=== PATIENT | female | born 1955 | race Caucasian/White ===

== ENCOUNTER 2016-04-14 11:20 | Day surgery (SDC) | payer BC ==
[2016-04-09 14:08] VITALS: BMI 31.9
[~2016-04-14 11:20] MED LIST: ALBUTEROL NEB (CONC) 2.5 MG/0.5 ML INHALATION ONE; ATROPINE SULFATE 0.4 MG/ML 1 ML VIAL IM ONE; LACTATED RINGERS 1,000 ML IV ONE; LIDOCAINE 2% (PF) 20 MG/ML 10ML INHALATION ONE; Pre Op ABX Message 1 EACH MISC MISCELLANE ONE
[2016-04-14 12:04] VITALS: TEMP 98
[2016-04-14] MEDS: LACTATED RINGERS 1,000 ML IV SCH ×2 (12:12→12:27)
[2016-04-14 12:19] LABS: Glucose,Whole Blood 65 mg/dL (75-99)
[2016-04-14] MEDS ORDERED: LIDOCAINE 1% INJ 10MG/ML (20 ML MDV) ONE (12:30)
[2016-04-14] MEDS ORDERED: PROPOFOL 10 MG/ML 20 ML VIAL IV ONE (12:30)
[2016-04-14] MEDS ORDERED: LIDOCAINE 2% INJ 20 MG/ML INTRATRACH ONE ×2 (12:34→12:37)
[2016-04-14 13:28] VITALS: BP 139/79; PULSE 86; RESP 18
[2016-04-14 15:55] LABS: RBC, Body Fluid 7500 /uL
--- NOTE | 2016-04-14 21:54 | PCN ---
DATE OF PROCEDURE: PROCEDURE: Bronchoscopy, airway examination, therapeutic lavage, bronchoalveolar lavage, right middle lobe. PREOPERATIVE DIAGNOSIS: SLASHER TENDER provided IV conscious sedation. There was informed consent. There was universal timeout. The patient's procedure was done by Dr. Ruth and Dr. Gómez. After the patient was adequately sedated and being fully monitored, the bronchoscope was inserted through the right nostril. It passed through the right nasopharynx into the oropharynx. The hypopharynx appeared normal, except for the yeast. There was izzy noted everywhere in the hypopharynx. We will have to put her on some medication for that. The anterior commissure, true cords, false cords, arytenoids, piriform sinuses, right and left valleculae and epiglottis otherwise appeared normal. After topicalization, the bronchoscope was pushed through the glottic opening into the trachea. Trachea appeared normal. Tracheal imani was sharp. There were secretions noted that were being coughed up into the proximal right and left mainstem and also into the trachea. After topicalization, the right upper lobe and its 3 segments, the right middle lobe and its 2 segments, the right lower lobe and its 5 segments, the left upper lobe proper and its 2 segments, the lingula and its 2 segments, and the left lower lobe and its 4 segments were all found to be normal save for diffuse bronchitis, erythema, hyperemia and mucosal friability. There were no dominant lesions. There were thick secretions noted throughout. They were suctioned with some difficulty. The bronchoscope was then wedged into the right middle lobe. BAL took place. There was no immediate complication. The patient will be recovered.
== END 2016-04-14 13:42 | disposition home or self-care (01) ==
LOC: ORWHC2ENDO 11:20
PROVIDERS: ATTEND Internal Medicine Critical Care Medicine
DX: J45.901 Unspecified asthma with (acute) exacerbation (principal); Z79.2 Long term (current) use of antibiotics; Z79.51 Long term (current) use of inhaled steroids; Z79.899 Other long term (current) drug therapy; Z88.0 Allergy status to penicillin; Z88.8 Allergy status to other drugs, medicaments and biological substances
CPT/HCPCS: 94640; 87798 ×4; 87496; 87498; 87529 ×2; 88108; 88305; 89050; 87252; 87502 ×2; 87070; 87205; 87116; 87102; 87077; 87186; 87206; 31624; J2001 ×3; J0461; J2704; 99153

== ENCOUNTER → 2016-09-14 | Outpatient (CLI) | payer BC ==
--- NOTE | 2016-09-14 15:02 | BD ---
EXAMINATION TYPE: MG DEXA axial skeleton. DATE OF EXAM: 09/14/2016 CLINICAL HISTORY: Postmenopausal female, osteoporosis per order. Height: 55.25 Weight: 180 Comparison: Prior DEXA bone scan July 04, 2012. FRAX RISK QUESTIONS: Alcohol (3 or more units per day): no Family History (Parent hip fracture): no Glucocorticoids (More than 3mos): yes (Ex: prednisone, prednisolone, methylprednisolone, dexamethasone, and hydrocortisone). History of Fracture in Adulthood: yes, ankle & right hip Secondary Osteoporosis: 1. Type 1 Diabetes: no 2. Hyperthyroidism: no 3. Menopause before 45: no, 48 4. Malnutrition: no 5. Chronic liver disease: no Rheumatoid Arthritis: no Current Tobacco Use: no RISK FACTORS HISTORY OF: Hip Fracture (Right): yes When: this may Surgery to Hip(right): yes When: 2016 Other Fractures since Age 51: yes When: 2017 Family History of Osteoporosis: no Drink Alcohol: occasionally Active: yes Diet low in dairy products/other sources of calcium: no Postmenopausal woman: yes Take estrogen and/or progesterone medications: no Lost more than 2 inches in height since high school: no Frequent falls: no Poor Health: no Hyperparathyroidism: no Adrenal Insufficiency: no MEDICATIONS: Prednisone or other steroids: yes How Long: since age 48 Thyroid Medications: no Osteoporosis Medications: no Additional Medications: Vitamin D, calcium EXAM MEASUREMENTS: Bone mineral densitometry was performed using the Getable System. Bone mineral density as measured about the Lumbar spine is: ----- L1-L4(G/cm2): 0.847 T Score Values are as follows: ----- L2: -2.8 ----- L3: -3.0 ----- L4: -3.0 ----- L1-L4: -2.8 Bone mineral density has: Decreased -8.2% since study of: 07/04/2012 Bone mineral density about the L hip (g/cm2): 0.773 T Score values are as follows: -----L Neck: -1.9 -----L Total: -1.9 Bone mineral density has: Decreased -2.3% since study of: 07/04/2012 IMPRESSION: Osteoporosis (T Score less than -2.5) as noted by T Score values at the low back is now present. Bone density is decreased or diminished from prior. There is increased fracture risk and therapy is usually indicated based on age. Re-Screen 1-2 years. NOTE: T-SCORE=SD OF THE YOUNG ADULT MEAN.
== END | disposition home or self-care (01) ==
LOC: RADBDWWP 12:44
PROVIDERS: ATTEND Internal Medicine Critical Care Medicine
DX: M81.0 Age-related osteoporosis without current pathological fracture (principal)
CPT/HCPCS: 77080

== ENCOUNTER → 2020-08-23 | Outpatient (CLI) | payer BC ==
[2020-08-23 19:26] LABS: African American GFR (CKD) 78.3 (60.0-200.0); Albumin 4.3 g/dL (3.80-4.90); Albumin/Globulin Ratio 1.79 (1.60-3.17); Anion Gap 7.2 mmol/L (4.00-12.00); BUN/Creat Ratio 21.11 Ratio (12.00-20.00); Carbon Dioxide 28.8 mmol/L (21.6-31.8); Chol/HDL Ratio 2.93; Globulin 2.4 g/dL (1.6-3.3); LDL Cholesterol,Calculated 97.2 mg/dL (0.0-131.0); Non-African American GFR(CKD) 67.6 (60.0-200.0); Potassium 4.5 mmol/L (3.5-5.5); Total Bilirubin 0.6 mg/dL (0.2-1.2); Total Protein 6.7 g/dL (6.2-8.2); VLDL Calculation 14.8 mg/dL (5.00-40.00)
[2020-08-23 19:35] LABS: T4, Free (Free Thyroxine) 1.1 ng/dL (0.80-1.80)
[2020-08-23 20:50] LABS: Basophils # (A) 0.05 X 10*3/uL (0.00-0.10); Basophils % (A) 0.8 %; Eosinophils # (A) 0.08 X 10*3/uL (0.04-0.35); Eosinophils % (A) 1.3 %; HCT 41.7 % (37.2-46.3); HGB 13.4 g/dL (12.0-15.0); Lymphocytes # (A) 1.85 X 10*3/uL (0.90-5.00); Lymphocytes % (A) 30.4 %; MCH 31.5 pg (27.0-32.0); MCHC 32.1 g/dL (32.0-37.0); MCV 97.9 fL (80.0-97.0); Mean Platelet Volume 11.5 fL (9.5-12.2); Monocytes # (A) 0.49 X 10*3/uL (0.20-1.00); Neutrophils # (A) 3.61 X 10*3/uL (1.80-7.70); Neutrophils % (A) 59.3 %; Platelet Count 177 X 10*3/uL (140-440); RBC 4.26 X 10*6/uL (4.10-5.20); RDW 13.1 % (11.5-14.5); WBC 6.09 X 10*3/uL (4.50-10.00)
[2020-08-23 23:04] LABS: Hemoglobin A1C 5.3 % (4.0-6.0)
== END | disposition home or self-care (01) ==
LOC: LABWHC1 11:36
PROVIDERS: ATTEND Internal Medicine Critical Care Medicine
DX: Z00.00 Encounter for general adult medical examination without abnormal findings (principal); J45.909 Unspecified asthma, uncomplicated
CPT/HCPCS: 36415; 80053; 80061; 82306; 83036; 84439; 84481; 85025

== ENCOUNTER 2020-11-06 15:47 | Emergency (ER) | payer BC ==
[2020-11-06 16:01] VITALS: TEMP 98
[2020-11-06 17:06] LABS: Basophils # (A) 0.1 k/uL (0-0.2); Basophils % (A) 1 %; Eosinophils # (A) 0.1 k/uL (0-0.7); Eosinophils % (A) 1 %; HCT 45.1 % (34.0-46.0); Lymphocytes # (A) 1.9 k/uL (1.0-4.8); Lymphocytes % (A) 23 %; MCH 31.9 pg (25.0-35.0); MCHC 33.3 g/dL (31.0-37.0); MCV 95.8 fL (80.0-100.0); Mean Platelet Volume 7.8; Monocytes # (A) 0.3 k/uL (0-1.0); Monocytes % (A) 3 %; Neutrophils # (A) 5.6 k/uL (1.3-7.7); Neutrophils % (A) 70 %; Platelet Count 207 k/uL (150-450); RBC 4.71 m/uL (3.80-5.40); RDW 13.1 % (11.5-15.5)
--- NOTE | 2020-11-06 17:06 | ED ---
General Adult HPI - General Chief complaint: Shortness of Breath Stated complaint: Coughing up blood Source: patient, family, RN notes reviewed, old records reviewed Mode of arrival: ambulatory Limitations: no limitations - History of Present Illness Initial comments: 65-year-old well-appearing well-nourished female, alert and oriented 4, presents to the emergency room with complaints of one day of cough with chest pain. Patient states that she does have a history of asthma and today she had a productive cough with a quarter size blood clot that came out. Patient denies any injuries Patient denies any other bleeding. No nausea vomiting diarrhea or fevers. States that she's been on Zithromax for 3 Wednesday for a couple of years to help control her asthma. Patient was told that it is an anti-inflammatory. -: days(s) (1) Location: chest Radiation: non-radiation Severity scale (1-10): 0 Consistency: now resolved Improves with: none Worsens with: other (Cough) Associated Symptoms: chest pain, cough, other (Hemoptysis) - Related Data Home Medications Medication Instructions Recorded Confirmed Azithromycin [Zithromax] 250 mg PO MOWEFR 04/09/16 11/06/20 Montelukast Sodium [Singulair] 10 mg PO HS 04/09/16 11/06/20 Calcium 2000mg 1 tab PO DAILY 11/06/20 11/06/20 Cholecalciferol [Vitamin D3 (25 25 mcg PO DAILY 11/06/20 11/06/20 Mcg = 1000 Iu)] Fluticasone Propion/Salmeterol 1 puff INHALATION RT-BID 11/06/20 11/06/20 [Wixela 500-50 Inhub] Loratadine [Claritin] 10 mg PO DAILY 11/06/20 11/06/20 Allergies Allergy/AdvReac Type Severity Reaction Status Date / Time aspirin Allergy Dyspnea Verified 11/06/20 17:18 Penicillins Allergy Rash/Hives Verified 11/06/20 17:18 Review of Systems ROS Statement: Those systems with pertinent positive or pertinent negative responses have been documented in the HPI. ROS Other: All systems not noted in ROS Statement are negative. Past Medical History Past Medical History: Asthma, Deep Vein Thrombosis (DVT) Additional Past Medical History / Comment(s): DVT 1995. VARICOSE VEINS. History of Any Multi-Drug Resistant Organisms: None Reported Additional Past Surgical History / Comment(s): VEIN STRIPPING. BRONCHOSCOPY. KIDNEY STONES. D&C. EXC BENIGN TUMOR LT OVARY. Past Anesthesia/Blood Transfusion Reactions: No Reported Reaction Past Psychological History: No Psychological Hx Reported Smoking Status: Never smoker Past Alcohol Use History: Occasional Past Drug Use History: None Reported - Past Family History Father Family Medical History: Cancer Mother Family Medical History: Cancer General Exam Limitations: no limitations General appearance: alert, in no apparent distress Head exam: Present: atraumatic, normocephalic, normal inspection Eye exam: Present: normal appearance, PERRL, EOMI. Absent: scleral icterus, conjunctival injection, periorbital swelling Pupils: Present: normal accommodation ENT exam: Present: normal exam, normal oropharynx, mucous membranes moist Neck exam: Present: normal inspection, full ROM. Absent: tenderness, meningismus, lymphadenopathy, thyromegaly Respiratory exam: Present: normal lung sounds bilaterally, rhonchi. Absent: respiratory distress, wheezes, rales, stridor, chest wall tenderness, decreased breath sounds Cardiovascular Exam: Present: regular rate, normal rhythm, normal heart sounds. Absent: systolic murmur, diastolic murmur, rubs, gallop, clicks GI/Abdominal exam: Present: soft, normal bowel sounds. Absent: distended, tenderness, guarding, rebound, rigid Extremities exam: Present: normal inspection, full ROM, normal capillary refill. Absent: tenderness, pedal edema, joint swelling, calf tenderness Back exam: Present: normal inspection, full ROM. Absent: tenderness, CVA tenderness (R), CVA tenderness (L), muscle spasm, paraspinal tenderness, vertebral tenderness, rash noted Neurological exam: Present: alert, oriented X3, CN II-XII intact Psychiatric exam: Present: normal affect, normal mood Skin exam: Present: warm, dry, intact, normal color. Absent: rash, cyanosis, diaphoretic, erythema, petechiae, pallor, mottled Course Vital Signs 11/06/20 15:56 Temperature 98.0 F Pulse Rate 86 Respiratory 17 Rate Blood Pressure 191/93 O2 Sat by Pulse 97 Oximetry EKG Findings - EKG Results: EKG: sinus rhythm (Ventricular rate of 80, [place] interval 0.174, QRS of 0.132, QTC of 0.479 occasional PVCs) Medical Decision Making - Medical Decision Making CBC count is 8.0, hemoglobin and hematocrit is 15.5 respectively, platelet count is 207, d-dimer is 0.51. Electrolytes are unremarkable. Troponin is negative at 0.012, EKG shows no ST elevation. There is a left bundle-branch block, no old EKG to compare. Chest x-ray shows no acute cardiopulmonary disease, normal heart. Patient was put on Zithromax 250 mg every Wednesday and Wednesday by her palm and back forger Dr. Weeks. She'll be directed to continue her medication. Return to emergency room with worsening symptoms, shortness of breath or chest pain. Patient is agreeable to this plan of care. Case discussed with Dr. Currie - Lab Data Result diagrams: 11/06/20 16:55 11/06/20 16:55 Lab Results 11/06/20 11/06/20 11/06/20 Range/Units 16:55 16:55 16:55 WBC 8.0 (3.8-10.6) k/uL RBC 4.71 (3.80-5.40) m/uL Hgb 15.0 (11.4-16.0) gm/dL Hct 45.1 (34.0-46.0) % MCV 95.8 (80.0-100.0) fL MCH 31.9 (25.0-35.0) pg MCHC 33.3 (31.0-37.0) g/dL RDW 13.1 (11.5-15.5) % Plt Count 207 (150-450) k/uL MPV 7.8 Neutrophils % 70 % Lymphocytes % 23 % Monocytes % 3 % Eosinophils % 1 % Basophils % 1 % Neutrophils # 5.6 (1.3-7.7) k/uL Lymphocytes # 1.9 (1.0-4.8) k/uL Monocytes # 0.3 (0-1.0) k/uL Eosinophils # 0.1 (0-0.7) k/uL Basophils # 0.1 (0-0.2) k/uL D-Dimer (<0.60) mg/L FEU Sodium 140 (137-145) mmol/L Potassium 4.1 (3.5-5.1) mmol/L Chloride 103 (98-107) mmol/L Carbon Dioxide 26 (22-30) mmol/L Anion Gap 11 mmol/L BUN 13 (7-17) mg/dL Creatinine 0.80 (0.52-1.04) mg/dL Est GFR (CKD-EPI)AfAm >90 (>60 ml/min/1.73 sqM) Est GFR (CKD-EPI)NonAf 78 (>60 ml/min/1.73 sqM) Glucose 93 (74-99) mg/dL Plasma Lactic Acid Camron 0.8 (0.7-2.0) mmol/L Calcium 10.3 H (8.4-10.2) mg/dL Magnesium 2.1 (1.6-2.3) mg/dL Total Bilirubin 0.6 (0.2-1.3) mg/dL AST 33 (14-36) U/L ALT 25 (4-34) U/L Alkaline Phosphatase 90 (38-126) U/L Troponin I (0.000-0.034) ng/mL Total Protein 8.1 (6.3-8.2) g/dL Albumin 5.0 (3.5-5.0) g/dL 11/06/20 11/06/20 Range/Units 16:55 16:55 WBC (3.8-10.6) k/uL RBC (3.80-5.40) m/uL Hgb (11.4-16.0) gm/dL Hct (34.0-46.0) % MCV (80.0-100.0) fL MCH (25.0-35.0) pg MCHC (31.0-37.0) g/dL RDW (11.5-15.5) % Plt Count (150-450) k/uL MPV Neutrophils % % Lymphocytes % % Monocytes % % Eosinophils % % Basophils % % Neutrophils # (1.3-7.7) k/uL Lymphocytes # (1.0-4.8) k/uL Monocytes # (0-1.0) k/uL Eosinophils # (0-0.7) k/uL Basophils # (0-0.2) k/uL D-Dimer 0.51 (<0.60) mg/L FEU Sodium (137-145) mmol/L Potassium (3.5-5.1) mmol/L Chloride (98-107) mmol/L Carbon Dioxide (22-30) mmol/L Anion Gap mmol/L BUN (7-17) mg/dL Creatinine (0.52-1.04) mg/dL Est GFR (CKD-EPI)AfAm (>60 ml/min/1.73 sqM) Est GFR (CKD-EPI)NonAf (>60 ml/min/1.73 sqM) Glucose (74-99) mg/dL Plasma Lactic Acid Camron (0.7-2.0) mmol/L Calcium (8.4-10.2) mg/dL Magnesium (1.6-2.3) mg/dL Total Bilirubin (0.2-1.3) mg/dL AST (14-36) U/L ALT (4-34) U/L Alkaline Phosphatase (38-126) U/L Troponin I <0.012 (0.000-0.034) ng/mL Total Protein (6.3-8.2) g/dL Albumin (3.5-5.0) g/dL Disposition Clinical Impression: Bronchitis Disposition: HOME SELF-CARE Condition: Good Instructions (If sedation given, give patient instructions): Acute Bronchitis (ED) Additional Instructions: Follow-up with the primary care doctor this week. Return to the emergency room with any worsening symptoms including chest pain, fever or difficulty in breathing. Is patient prescribed a controlled substance at d/c from ED?: No Referrals: Gerardo Ruth DO [Primary Care Provider] - 1-2 days Time of Disposition: 18:13
[2020-11-06 17:24] LABS: ALT 25 U/L (4-34); AST 33 U/L (14-36); African American GFR (CKD) >90 (>60 ml/min/1.73 sqM); Alkaline Phosphatase 90 U/L (38-126); Anion Gap 11 mmol/L; Blood Urea Nitrogen 13 mg/dL (7-17); Calcium 10.3 mg/dL (8.4-10.2); Carbon Dioxide 26 mmol/L (22-30); Chloride 103 mmol/L (98-107); Glucose 93 mg/dL (74-99); Magnesium 2.1 mg/dL (1.6-2.3); Non-African American GFR(CKD) 78 (>60 ml/min/1.73 sqM); Potassium 4.1 mmol/L (3.5-5.1); Sodium 140 mmol/L (137-145); Total Bilirubin 0.6 mg/dL (0.2-1.3); Total Protein 8.1 g/dL (6.3-8.2)
--- NOTE | 2020-11-06 17:45 | XR ---
EXAMINATION TYPE: XR chest 2V DATE OF EXAM: 11/06/2020 COMPARISON: 01/31/2019 HISTORY: Chest tightness TECHNIQUE: 2 views FINDINGS: There is no heart failure nor confluent pneumonic infiltrate. Costophrenic angles are clear . There is some spurring in the thoracic spine. Heart size is normal. The bony thorax is intact. IMPRESSION: No active cardiopulmonary disease. Normal heart. There is significant clearing of the min imal pulmonary interstitial infiltrates in the lower lung kendrick compared to old exam.
[2020-11-06 18:41] VITALS: BP 160/102; PULSE 81; RESP 18
== END 2020-11-06 18:57 | disposition home or self-care (01) ==
LOC: EC 15:47
DX: J40 Bronchitis, not specified as acute or chronic (principal); Z86.718 Personal history of other venous thrombosis and embolism; Z79.51 Long term (current) use of inhaled steroids; Z88.0 Allergy status to penicillin; Z88.6 Allergy status to analgesic agent
CPT/HCPCS: 36415; 71046; 80053; 83605; 83735; 84484; 85025; 85379; 93005; 99285

== ENCOUNTER → 2021-07-14 | Outpatient (CLI) | payer BC ==
--- NOTE | 2021-07-14 16:16 | BD ---
EXAMINATION TYPE: Axial Bone Density DATE OF EXAM: 07/14/2021 COMPARISON: 09/14/2016 CLINICAL HISTORY: 66 years year old Female. ICD-10 CODE: M85.88 other disorder of bone density Height: 65 IN Weight: 210 LBS FRAX RISK QUESTIONS: History of Fracture in Adulthood: RT HIP FX AGE 62 RISK FACTORS HISTORY OF: Hip Fracture (Right): AGE 62 Surgery to Hip(right): AGE 62 Active: YES Postmenopausal woman: AGE 48 MEDICATIONS: Osteoporosis Medications: NOT NOW Which medication: Fosamax How Lon YEAR Additional Medications: CALCIUM, VIT D, ADVAIR, AZITHROMYCIN, VIT C EXAM MEASUREMENTS: Bone mineral densitometry was performed using the First Wave System. Bone mineral density as measured about the Lumbar spine is: ----- L1-L4(G/cm2): 0.907 T Score Values are as follows: ----- L1: -1.6 ----- L2: -3.0 ----- L3: -2.7 ----- L4: -2.1 ----- L1-L4: -2.3 Bone mineral density has: Increased 6.8% since study of: 09/14/2016 Bone mineral density about the L hip (g/cm2): 0.789 T Score values are as follows: -----L Neck: -1.8 -----L Total: -1.6 Bone mineral density has: Increased -1.6% since study of: 09/14/2016 FRAX%s: The graph provided illustrates a 15.3 chance for a major osteoporotic fx and a 2.0 chance for the hips probability for fx in 10 years time. IMPRESSION: Osteoporosis (T Score less than -2.5). There is increased fracture risk and therapy is usually indicated based on age. Re-Screen 1-2 years. NOTE: T-SCORE=SD OF THE YOUNG ADULT MEAN.
== END | disposition home or self-care (01) ==
LOC: RADBDWWP 13:24
PROVIDERS: ATTEND Internal Medicine Critical Care Medicine
DX: M81.0 Age-related osteoporosis without current pathological fracture (principal); M85.89 Other specified disorders of bone density and structure, multiple sites; Z78.0 Asymptomatic menopausal state
CPT/HCPCS: 77080

== ENCOUNTER 2021-09-07 14:10 | Emergency (ER) | payer BC ==
[2021-09-07 15:05] VITALS: BP 166/103; PULSE 81; RESP 18; TEMP 97.7
[2021-09-07] MEDS ORDERED: HYDROmorphone 1 MG/ML 1 ML SYRINGE IM STA (15:35)
--- NOTE | 2021-09-07 15:57 | ED ---
Back Pain HPI - General Chief Complaint: Back Pain/Injury Stated Complaint: Fall/Back/head injury Time Seen by Provider: 09/07/21 15:17 Source: patient, family, RN notes reviewed Limitations: no limitations - History of Present Illness Initial Comments: This a 66-year-old female presents emergency Department chief complaint of a fall. Patient states she was in the garage missed a step falling backwards striking her back on a tool box. Patient complains of upper back, rib pain. She states she had she bumped her head but has no went of headache, loss consciousness, neck pain no low back pain no difficulty and bleeding. Family with her states that she's had her normal baseline. Patient denies any extremity pain no focal weakness. Patient denies any blood thinners. - Related Data Home Medications Medication Instructions Recorded Confirmed Azithromycin [Zithromax] 250 mg PO MOWEFR 04/09/16 11/06/20 Montelukast Sodium [Singulair] 10 mg PO HS 04/09/16 11/06/20 Calcium 2000mg 1 tab PO DAILY 11/06/20 11/06/20 Cholecalciferol [Vitamin D3 (25 25 mcg PO DAILY 11/06/20 11/06/20 Mcg = 1000 Iu)] Fluticasone Propion/Salmeterol 1 puff INHALATION RT-BID 11/06/20 11/06/20 [Wixela 500-50 Inhub] Loratadine [Claritin] 10 mg PO DAILY 11/06/20 11/06/20 Previous Rx's Medication Instructions Recorded HYDROcodone/APAP 5-325MG [White Bird 5] 1 each PO Q6HR PRN #12 tab 09/07/21 Allergies Allergy/AdvReac Type Severity Reaction Status Date / Time aspirin Allergy Dyspnea Verified 09/07/21 15:05 Penicillins Allergy Rash/Hives Verified 09/07/21 15:05 Review of Systems ROS Statement: Those systems with pertinent positive or pertinent negative responses have been documented in the HPI. ROS Other: All systems not noted in ROS Statement are negative. Past Medical History Past Medical History: Asthma, Deep Vein Thrombosis (DVT) Additional Past Medical History / Comment(s): DVT 1995. VARICOSE VEINS. History of Any Multi-Drug Resistant Organisms: None Reported Additional Past Surgical History / Comment(s): VEIN STRIPPING. BRONCHOSCOPY. KIDNEY STONES. D&C. EXC BENIGN TUMOR LT OVARY. Past Anesthesia/Blood Transfusion Reactions: No Reported Reaction Past Psychological History: No Psychological Hx Reported Smoking Status: Never smoker Past Alcohol Use History: Occasional Past Drug Use History: None Reported - Past Family History Father Family Medical History: Cancer Mother Family Medical History: Cancer General Exam Limitations: no limitations General appearance: alert, in no apparent distress Head exam: Present: atraumatic, normocephalic, normal inspection Eye exam: Present: normal appearance, PERRL, EOMI. Absent: scleral icterus, conjunctival injection, periorbital swelling ENT exam: Present: normal exam, normal oropharynx, mucous membranes moist Neck exam: Present: normal inspection, full ROM. Absent: tenderness, meningismus, lymphadenopathy Respiratory exam: Present: normal lung sounds bilaterally. Absent: respiratory distress, wheezes, rales, rhonchi, stridor Cardiovascular Exam: Present: regular rate, normal rhythm, normal heart sounds. Absent: systolic murmur, diastolic murmur, rubs, gallop, clicks Extremities exam: Present: normal inspection, full ROM, normal capillary refill. Absent: tenderness, pedal edema, joint swelling, calf tenderness Back exam: Present: full ROM, tenderness, paraspinal tenderness, vertebral tenderness Neurological exam: Present: alert, oriented X3, reflexes normal. Absent: motor sensory deficit Skin exam: Present: warm, dry, intact, normal color. Absent: rash Course Vital Signs 09/07/21 14:59 Temperature 97.7 F Pulse Rate 81 Respiratory 18 Rate Blood Pressure 166/103 O2 Sat by Pulse 97 Oximetry Medical Decision Making - Medical Decision Making X-rays negative for acute fracture including the thoracic spine, ribs there is no evidence of pneumothorax. Patient did have pain relief. Patient was discharged in stable condition return parameters were discussed. Disposition Clinical Impression: Back contusion, Rib contusion Disposition: HOME SELF-CARE Condition: Stable Instructions (If sedation given, give patient instructions): Rib Contusion (ED) Additional Instructions: Please return to the Emergency Department if symptoms worsen or any other concerns. Prescriptions: HYDROcodone/APAP 5-325MG [White Bird 5] 1 each PO Q6HR PRN #12 tab PRN Reason: Pain Is patient prescribed a controlled substance at d/c from ED?: Yes When asked, does pt state using other controlled substances?: No If prescribed controlled substance>3 days was MAPS reviewed?: Prescribed <3 Days If opioid is for acute pain is fill amount 7 days or less?: Yes If Rx opioid, was Start Talking consent form obtained?: Yes Referrals: Gerardo Ruth DO [Primary Care Provider] - 1-2 days Time of Disposition: 16:36
--- NOTE | 2021-09-07 16:20 | XR ---
EXAMINATION TYPE: XR chest 1V DATE OF EXAM: 09/07/2021 COMPARISON: 11/06/2020 HISTORY: Fall. Chest pain TECHNIQUE: Single view FINDINGS: Heart is normal. Lungs are clear of consolidation. No heart failure. There are no hilar mas ses. There is some mild increased density lateral left lung base. IMPRESSION: There is some mild pleural reaction and atelectasis left lung base which is new compared to old exam. Normal heart.
--- NOTE | 2021-09-07 16:22 | XR ---
EXAMINATION TYPE: XR thoracic spine 2V DATE OF EXAM: 09/07/2021 COMPARISON: 11/06/2020 HISTORY: Difficulty breathing. Back pain TECHNIQUE: 3 views FINDINGS: Thoracic vertebra have normal alignment. No compression fracture. There is anterior spurrin g in the lower thoracic spine. There is no paraspinal mass. Posterior elements are intact. IMPRESSION: Spondylotic changes in the thoracic spine. No fracture. No change compared to old exam.
== END 2021-09-07 17:06 | disposition home or self-care (01) ==
LOC: EC 14:10
DX: S20.229A Contusion of unspecified back wall of thorax, initial encounter (principal); S20.219A Contusion of unspecified front wall of thorax, initial encounter; J45.909 Unspecified asthma, uncomplicated; Z79.51 Long term (current) use of inhaled steroids; Z88.0 Allergy status to penicillin; Z88.5 Allergy status to narcotic agent; W10.9XXA Fall (on) (from) unspecified stairs and steps, initial encounter
CPT/HCPCS: 72070; 71045; 99283; 96372; J1170

== ENCOUNTER 2021-09-23 07:06 | Day surgery (SDC) | payer BC ==
[2021-09-19 16:28] VITALS: BMI 33.3
[~2021-09-23 07:06] MED LIST changes: -ALBUTEROL NEB (CONC) 2.5 MG/0.5 ML INHALATION ONE; -ATROPINE SULFATE 0.4 MG/ML 1 ML VIAL IM ONE; -LACTATED RINGERS 1,000 ML IV ONE; +LIDOCAINE 1% (10MG/ML) FOR IV START INTRADERMA PRN; -LIDOCAINE 2% (PF) 20 MG/ML 10ML INHALATION ONE; -Pre Op ABX Message 1 EACH MISC MISCELLANE ONE
[2021-09-23 07:27] VITALS: RESP 16; TEMP 98.1
[2021-09-23] MEDS: LACTATED RINGERS 1,000 ML IV SCH ×2 (07:41→08:52)
[2021-09-23] MEDS ORDERED: PROPOFOL 10 MG/ML 20 ML VIAL IV ONE (08:54)
[2021-09-23] MEDS ORDERED: LIDOCAINE 2% INJ 20 MG/ML (2 ML VIAL) ONE (08:54)
[2021-09-23] MEDS ORDERED: GLYCOPYRROLATE 0.2 MG/ML 2 ML VIAL ONE (08:54)
--- NOTE | 2021-09-23 09:17 | P.PCN ---
Date of Procedure: 09/23/21 Procedure(s) Performed: BRIEF HISTORY: Patient is a 66-year-old pleasant white female scheduled for an elective colonoscopy as a part of screening for colorectal neoplasia. PROCEDURE PERFORMED: Colonoscopy with snare polypectomy. PREOPERATIVE DIAGNOSIS: Screening for colon cancer. IV sedation per Anesthesia. PROCEDURE: After informed consent was obtained, the patient, was brought into the endoscopy unit. IV sedation was administered by Anesthesia under continuous monitoring. Digital rectal examination was normal. Initially the Olympus CF-160 flexible video colonoscope was then inserted in the rectum, gradually advanced into the cecum without any difficulty. Careful examination was performed as the scope was gradually being withdrawn. Ileocecal valve and the appendiceal orifice were visualized and appeared normal. Prep was excellent. Mucosa of the cecum, appeared normal. Ascending colon there was a 5 mm and still polyps removed by snare polypectomy. In the hepatic flexure there was a 2 cm polyp removed by snare polypectomy. In the sigmoid colon there was a 1.5 cm pedunculated polyp removed by snare polypectomy. In the rectum; there was another 1 cm polyp removed by snare polypectomy. Rest of the sigmoid colon, and rectum appeared normal. Retroflexion was performed in the rectum and no lesions were seen. The patient tolerated the procedure well. IMPRESSION: 5 mm 2 ascending colon polyps status post polypectomy 1 cm hepatic flexure polyp status post polypectomy 1 cm pedunculated sigmoid colon polyp status post snare polypectomy 1 cm rectosigmoid polyp status post polypectomy Recommendations Findings of this examination were discussed with the patient [as well as a family. She was advised to follow with the biopsy results. If the biopsy results adenoma she can have a repeat colonoscopy in 3 years.
[2021-09-23 09:38] VITALS: BP 140/90; PULSE 89
== END 2021-09-23 09:58 | disposition home or self-care (01) ==
LOC: ORWHC2ENDO 07:06
PROVIDERS: ATTEND Internal Medicine Gastroenterology
DX: Z12.11 Encounter for screening for malignant neoplasm of colon (principal); D12.2 Benign neoplasm of ascending colon; D12.5 Benign neoplasm of sigmoid colon; J45.909 Unspecified asthma, uncomplicated; Z79.899 Other long term (current) drug therapy; Z88.6 Allergy status to analgesic agent; Z88.0 Allergy status to penicillin
CPT/HCPCS: 88305; 45385; J2704; J2001

== ENCOUNTER → 2021-10-03 | Outpatient (CLI) | payer BC ==
--- NOTE | 2021-10-03 14:28 | NM ---
EXAMINATION TYPE: NM bone scan whole body DATE OF EXAM: 10/03/2021 HISTORY: Patient age:Female; 66 years old; Reason for study: M54.6 PAIN T SPINE; COMPARISON: Thoracic spine radiograph 09/07/2021. TECHNIQUE: Delayed whole-body scanning was performed following the injection of 21 mCi Tc 99m MDP. I mages acquired 3 hours post injection. Small [id number]-[id number] anterior, posterior and lateral views of t he chest and abdomen were submitted for review. FINDINGS: Abnormal uptake seen within the upper thoracic spine around T6. No Abnormal uptake is identified with in the appendicular or axial skeleton to suggest metastatic disease. There is increased uptake within the bilateral shoulder, sternoclavicular, and sacroiliac joints, rig ht first metatarsophalangeal joint, knees and left heel. Findings most consistent with with degenera tive changes. No other photopenic areas or areas of increased activity are identified. Physiologic radiotracer activity is demonstrated in the kidneys and bladder. IMPRESSION: Abnormal uptake within the upper thoracic spine in what is thought to be around the T6 vertebrae susp icious for acute/subacute fracture in the setting of traumatic back pain and in the absence of malign esmer.
== END | disposition home or self-care (01) ==
LOC: RADNMMAIN 09:56
PROVIDERS: ATTEND Physical Medicine & Rehabilitation
DX: M54.6 Pain in thoracic spine (principal); R93.7 Abnormal findings on diagnostic imaging of other parts of musculoskeletal system
CPT/HCPCS: 78306; A9503

== ENCOUNTER → 2023-07-23 | Outpatient (CLI) | payer BC ==
[2023-07-23 16:07] LABS: Basophils # (A) 0.03 X 10*3/uL (0.00-0.10); Basophils % (A) 0.5 %; Eosinophils # (A) 0.09 X 10*3/uL (0.04-0.35); Eosinophils % (A) 1.5 %; HCT 42.8 % (37.2-46.3); HGB 14.2 g/dL (12.0-15.0); Lymphocytes # (A) 1.63 X 10*3/uL (0.90-5.00); Lymphocytes % (A) 26.9 %; MCH 31.6 pg (27.0-32.0); MCHC 33.2 g/dL (32.0-37.0); MCV 95.3 FL (80.0-97.0); Mean Platelet Volume 10.4 FL (9.5-12.2); Monocytes # (A) 0.43 X 10*3/uL (0.20-1.00); Monocytes % (A) 7.1 %; NRBC Per 100 WBC 0 X 10*3/uL (0.00-0.01); Neutrophils # (A) 3.86 X 10*3/uL (1.80-7.70); Neutrophils % (A) 63.7 %; Platelet Count 190 X 10*3/uL (140-440); RBC 4.49 X 10*6/uL (4.10-5.20); WBC 6.06 X 10*3/uL (4.50-10.00)
[2023-07-23 19:17] LABS: ALT 23 U/L (8-44); AST 20 U/L (13-35); Albumin 4.5 g/dL (3.8-4.9); Albumin/Globulin Ratio 1.55 Ratio (1.60-3.17); Alkaline Phosphatase 67 U/L (41-126); BUN/Creat Ratio 17.89 Ratio (12.00-20.00); Blood Urea Nitrogen 16.1 mg/dL (9.0-27.0); Calcium 9.9 mg/dL (8.7-10.3); Chloride 103 mmol/L (96-109); Chol/HDL Ratio 3.05 Ratio; Globulin 2.9 g/dL (1.6-3.3); Glucose 91 mg/dL (70-110); LDL Cholesterol,Calculated 105.9 mg/dL (0.0-131.0); Potassium 4.5 mmol/L (3.5-5.5); Sodium 141 mmol/L (135-145); Total Bilirubin 0.7 mg/dL (0.3-1.2); Total Protein 7.4 g/dL (6.2-8.2)
== END | disposition home or self-care (01) ==
LOC: LABWHC1 11:32
PROVIDERS: ATTEND Internal Medicine Critical Care Medicine
DX: Z00.00 Encounter for general adult medical examination without abnormal findings (principal); M81.0 Age-related osteoporosis without current pathological fracture; J45.909 Unspecified asthma, uncomplicated; E55.9 Vitamin D deficiency, unspecified
CPT/HCPCS: 36415; 80053; 80061; 82306; 83036; 84439; 84443; 85025

== ENCOUNTER → 2024-01-26 | Outpatient (CLI) | payer BC ==
--- NOTE | 2024-01-26 22:47 | BD ---
EXAMINATION TYPE: Axial Bone Density DATE OF EXAM: 01/26/2024 CLINICAL HISTORY: 69 years old Female. ICD-10 CODE: M85.88 OT DISRD OF BONE DENSITY AND STRUCTURE Height: 65 Weight: 210.8 FRAX RISK QUESTIONS: Alcohol (3 or more units per day): no Family History (Parent hip fracture): no Glucocorticoids (More than 3mos): no (Ex: prednisone, prednisolone, methylprednisolone, dexamethasone, and hydrocortisone). History of Fracture in Adulthood: femur, finger, ankle, t-spine, foot Secondary Osteoporosis: 1. Type 1 Diabetes: no 2. Hyperthyroidism: no 3. Menopause before 45: no 4. Malnutrition: no 5. Chronic liver disease: no Rheumatoid Arthritis: no Current Tobacco Use: no RISK FACTORS HISTORY OF: Hip Fracture (Right/Left): RT femur When: 2016 Spine Fracture: T-spine When: 2021 History of Wrist Fracture: no When: Surgery to Spine/Hip(right/left)/Wrist (right/left): RT Femur, TSpine When: MEDICATIONS: Thyroid Medications: no Osteoporosis Medications: Prolia every 6 months past 2 years EXAM MEASUREMENTS: Bone mineral densitometry was performed using the Medius System. Bone mineral density as measured about the Lumbar spine is: ----- L1-L4(G/cm2): 0.979 T Score Values are as follows: ----- L1: -1.8 ----- L2: -2.2 ----- L3: -1.7 ----- L4: -1.3 ----- L1-L4: -1.7 Z Score Values are as follows: ----- L1: -1.2 ----- L2: -1.6 ----- L3: -1.1 ----- L4: -0.7 ----- L1-L4: -1.1 Bone mineral density has: increased 7.9 % since study of: 07/14/2021 Bone mineral density about the L hip (g/cm2): 0.859 T Score values are as follows: -----L Neck: -1.6 -----L Total: -1.2 Z Score values are as follows: -----L Neck: -0.7 -----L Total: -0.6 Bone mineral density has: increased 6.6 % since study of: 07/14/2021 FRAX%s: The graph provided illustrates a 14.9% chance for a major osteoporotic fx and a 1.9% chance f or the hips probability for fx in 10 years time. IMPRESSION: Osteopenia (T Score between -2.5 and -1). There is slightly increased risk of fracture and the patient may be considered for treatment. Re-Screen 2-5 years. NOTE: T-SCORE=SD OF THE YOUNG ADULT MEAN. [facility], , 01/26/2024 10:45 PM
== END ==
LOC: RADBDWWP 14:26
PROVIDERS: ATTEND Internal Medicine Critical Care Medicine
DX: M85.89 Other specified disorders of bone density and structure, multiple sites (principal)
CPT/HCPCS: 77080

== ENCOUNTER 2024-05-15 14:55 | Emergency (ER) | payer BC ==
--- NOTE | 2024-05-15 15:35 | ED ---
Nausea/Vomiting/Diarrhea HPI - General Chief complaint: Nausea/Vomiting/Diarrhea Stated complaint: Nausa/Exhaus/Weak Time Seen by Provider: 05/15/24 15:32 Source: patient, family, RN notes reviewed Mode of arrival: ambulatory Limitations: no limitations - History of Present Illness Initial comments: 69-year-old female presented the ER for evaluation of nausea and feeling unwell. Patient states since , 130-25, she is felt extremely nauseous and unwell. She states she has been unable to keep any solid foods down but has been able to keep water down. She states she has been laid up in bed as she feels unwell. She also reports a productive cough, sore throat and chills. She denies any shortness of breath or chest pain. She does report a history of asthma and states her chest feels tight due to this. Patient has tried shhi-vzi-yosegto DayQuil, NyQuil, Mucinex, Tylenol with minimal relief of symptoms. Patient does report her was ill with similar symptoms recently. Patient denies any abdominal pain, constipation/diarrhea, urinary complaints, peripheral edema or fevers. - Related Data Home Medications Medication Instructions Recorded Confirmed Azithromycin [Zithromax] 250 mg PO MOWEFR 04/09/16 09/19/21 Montelukast Sodium [Singulair] 10 mg PO HS 04/09/16 09/19/21 Calcium 2000mg 1 tab PO DAILY 11/06/20 09/19/21 Cholecalciferol [Vitamin D3 (25 25 mcg PO DAILY 11/06/20 09/19/21 Mcg = 1000 Iu)] Fluticasone Propion/Salmeterol 1 puff INHALATION RT-BID 11/06/20 09/23/21 [Wixela 500-50 Inhub] Acetaminophen [Tylenol Extra 500 mg PO DIRECTED PRN 09/19/21 09/23/21 Strength] Previous Rx's Medication Instructions Recorded HYDROcodone/APAP 5-325MG [Mesa 5] 1 each PO Q6HR PRN #12 tab 09/07/21 Ondansetron Odt [Zofran Odt] 4 mg PO Q8HR PRN #10 tab 05/15/24 Allergies Allergy/AdvReac Type Severity Reaction Status Date / Time aspirin Allergy Dyspnea Verified 09/23/21 07:22 Penicillins Allergy Rash/Hives Verified 09/23/21 07:22 Review of Systems ROS Statement: Those systems with pertinent positive or pertinent negative responses have been documented in the HPI. ROS Other: All systems not noted in ROS Statement are negative. Past Medical History Past Medical History: Asthma, Deep Vein Thrombosis (DVT) Additional Past Medical History / Comment(s): DVT 1995. VARICOSE VEINS. History of Any Multi-Drug Resistant Organisms: None Reported Additional Past Surgical History / Comment(s): VEIN STRIPPING. BRONCHOSCOPY. KIDNEY STONES. D&C. EXC BENIGN TUMOR LT OVARY. Past Anesthesia/Blood Transfusion Reactions: No Reported Reaction Past Psychological History: No Psychological Hx Reported Smoking Status: Never smoker Past Alcohol Use History: Rare Past Drug Use History: None Reported - Past Family History Father Family Medical History: Cancer Mother Family Medical History: Cancer Sister(s) Family Medical History: Cancer General Exam Limitations: no limitations General appearance: alert, in no apparent distress Respiratory exam: Present: normal lung sounds bilaterally. Absent: respiratory distress, wheezes, rales, rhonchi, stridor Cardiovascular Exam: Present: regular rate, normal rhythm, normal heart sounds. Absent: systolic murmur, diastolic murmur, rubs, gallop, clicks GI/Abdominal exam: Present: soft, normal bowel sounds. Absent: distended, tenderness, guarding, rebound, rigid Extremities exam: Present: normal inspection, full ROM, normal capillary refill. Absent: tenderness, pedal edema, joint swelling, calf tenderness Neurological exam: Present: alert, oriented X3, CN II-XII intact Skin exam: Present: warm, dry, intact, normal color. Absent: rash Course Vital Signs 05/15/24 05/15/24 05/15/24 15:13 15:55 17:19 Temperature 98.9 F 99.8 F H 99.4 F Pulse Rate 95 82 79 Respiratory 16 16 18 Rate Blood Pressure 125/85 128/83 132/83 O2 Sat by Pulse 96 97 97 Oximetry Medical Decision Making - Medical Decision Making Was pt. sent in by a medical professional or institution (, PA, DESIGN PRINTING MACHINE SETTER, urgent c are, hospital, or long term...) When possible be specific @ -No Did you speak to anyone other than the patient for history (EMS, parent, family, police, friend...)? What history was obtained from this source @ -No Did you review nursing and triage notes (agree or disagree)? Why? @ -I reviewed and agree with nursing and triage notes Were old charts reviewed (outside hosp., previous admission, EMS record, old EKG, old radiological studies, urgent care reports/EKG's, long term records)? Report findings @ -No old charts were reviewed Differential Diagnosis (chest pain, altered mental status, abdominal pain women, abdominal pain men, vaginal bleeding, weakness, fever, dyspnea, syncope, headache, dizziness, GI bleed, back pain, seizure, CVA, palpatations, mental health, musculoskeletal)? @ -Gastroenteritis, influenza, COVID-19, RSV, norovirus, pneumonia,... This list is not meant to be all-inclusive EKG interpreted by me (3pts min.). @ -None done X-rays interpreted by me (1pt min.). @ -CXR interpreted by me negative for focal consolidation. CT interpreted by me (1pt min.). @ -None done U/S interpreted by me (1pt. min.). @ -None done What testing was considered but not performed or refused? (CT, X-rays, U/S, labs)? Why? @ -None What meds were considered but not given or refused? Why? @ -Tamiflu considered but not prescribed as patient is outside of 48 hours symptom onset window. Did you discuss the management of the patient with other professionals (professionals i.e. , PA, DESIGN PRINTING MACHINE SETTER, lab, RT, psych nurse, health social work professor, research and insights executive, teacher, global chief experience officer, shoe caser)? Give summary @ -No Was smoking cessation discussed for >3mins.? @ -No Was critical care preformed (if so, how long)? @ -No Were there social determinants of health that impacted care today? How? (Homelessness, low income, unemployed, alcoholism, drug addiction, transportation, low edu. Level, literacy, decrease access to med. care, halfway, rehab)? @ -No Was there de-escalation of care discussed even if they declined (Discuss DNR or withdrawal of care, Hospice)? DNR status @ -No What co-morbidities impacted this encounter? (DM, HTN, Smoking, COPD, CAD, Cancer, CVA, ARF, Chemo, Hep., AIDS, mental health diagnosis, sleep apnea, morbid obesity)? @ -None Was patient admitted / discharged? Hospital course, mention meds given and route, prescriptions, significant lab abnormalities, going to OR and other pertinent info. @ -Discharge. 69-year-old female presented the ER for evaluation of nausea and feeling unwell. Upon rooming, history and physical exam completed. Patient with a temperature 99.8F vitals otherwise within acceptable limits. Patient no signs of acute distress nontoxic-appearing. Laboratory studies unimpressive. Workup in the ER remarkable for influenza A. CXR negative. Patient given IV fluids, Zofran and Tylenol for fever and symptom control in the ER, with improvement. Upon reevaluation, patient resting comfortably in exam room no signs of acute distress. Results discussed with patient, all questions answered. Patient tolerating oral intake. Zofran prescribed. I advised [id number] Tylenol for fever control outpatient. Strict return parameters discussed. Patient discharged in stable condition with follow-up to PCP. Patient verbally expressed understanding and agreement with care plan. Case discussed with ED attending, Dr. Hays. Undiagnosed new problem with uncertain prognosis? @ -No Drug Therapy requiring intensive monitoring for toxicity (Heparin, Nitro, Insulin, Cardizem)? @ -No Were any procedures done? @ -No Diagnosis/symptom? @ -Influenza A/acute viral sinusitis Acute, or Chronic, or Acute on Chronic? @ -Acute Uncomplicated (without systemic symptoms) or Complicated (systemic symptoms)? @ -Uncomplicated Side effects of treatment? @ -No Exacerbation, Progression, or Severe Exacerbation? @ -No Poses a threat to life or bodily function? How? (Chest pain, [place], AL, pneumonia, PE, COPD, DKA, ARF, appy, cholecystitis, CVA, Diverticulitis, Homicidal, Suicidal, threat to staff... and all critical care pts) @ -Low at this time - Lab Data Result diagrams: 05/15/24 15:40 05/15/24 15:40 Lab Results 05/15/24 05/15/24 05/15/24 Range/Units 15:40 15:40 15:40 WBC 4.7 (3.8-10.6) k/uL RBC 5.25 (3.80-5.40) m/uL Hgb 16.8 H (11.4-16.0) gm/dL Hct 48.6 H (34.0-46.0) % MCV 92.7 (80.0-100.0) fL MCH 32.1 (25.0-35.0) pg MCHC 34.6 (31.0-37.0) g/dL RDW 12.7 (11.5-15.5) % Plt Count 135 L (150-450) k/uL MPV 8.8 Neutrophils % 81 % Lymphocytes % 11 % Monocytes % 5 % Eosinophils % 1 % Basophils % 0 % Neutrophils # 3.8 (1.3-7.7) k/uL Lymphocytes # 0.5 L (1.0-4.8) k/uL Monocytes # 0.2 (0-1.0) k/uL Eosinophils # 0.0 (0-0.7) k/uL Basophils # 0.0 (0-0.2) k/uL Sodium 134 L (137-145) mmol/L Potassium 4.2 (3.5-5.1) mmol/L Chloride 94 L (98-107) mmol/L Carbon Dioxide 27 (22-30) mmol/L Anion Gap 13 mmol/L BUN 17 (7-17) mg/dL Creatinine 0.82 (0.52-1.04) mg/dL Est GFR (CKD-EPI)AfAm 85 (>60 ml/min/1.73 sqM) Est GFR (CKD-EPI)NonAf 74 (>60 ml/min/1.73 sqM) Glucose 103 H (74-99) mg/dL Plasma Lactic Acid Camron 1.1 (0.7-2.0) mmol/L Calcium 8.8 (8.4-10.2) mg/dL Total Bilirubin 0.9 (0.2-1.3) mg/dL AST 73 H (14-36) U/L ALT 45 H (4-34) U/L Alkaline Phosphatase 48 (38-126) U/L Total Protein 8.2 (6.3-8.2) g/dL Albumin 4.6 (3.5-5.0) g/dL Amylase 63 (30-110) U/L Lipase 113 (23-300) U/L Influenza Type A (PCR) (Not Detectd) Influenza Type B (PCR) (Not Detectd) RSV (PCR) (Not Detectd) SARS-CoV-2 (PCR) (Not Detectd) Group A Strep (PCR) (Not Detectd) 05/15/24 05/15/24 Range/Units 15:40 15:40 WBC (3.8-10.6) k/uL RBC (3.80-5.40) m/uL Hgb (11.4-16.0) gm/dL Hct (34.0-46.0) % MCV (80.0-100.0) fL MCH (25.0-35.0) pg MCHC (31.0-37.0) g/dL RDW (11.5-15.5) % Plt Count (150-450) k/uL MPV Neutrophils % % Lymphocytes % % Monocytes % % Eosinophils % % Basophils % % Neutrophils # (1.3-7.7) k/uL Lymphocytes # (1.0-4.8) k/uL Monocytes # (0-1.0) k/uL Eosinophils # (0-0.7) k/uL Basophils # (0-0.2) k/uL Sodium (137-145) mmol/L Potassium (3.5-5.1) mmol/L Chloride (98-107) mmol/L Carbon Dioxide (22-30) mmol/L Anion Gap mmol/L BUN (7-17) mg/dL Creatinine (0.52-1.04) mg/dL Est GFR (CKD-EPI)AfAm (>60 ml/min/1.73 sqM) Est GFR (CKD-EPI)NonAf (>60 ml/min/1.73 sqM) Glucose (74-99) mg/dL Plasma Lactic Acid Camron (0.7-2.0) mmol/L Calcium (8.4-10.2) mg/dL Total Bilirubin (0.2-1.3) mg/dL AST (14-36) U/L ALT (4-34) U/L Alkaline Phosphatase (38-126) U/L Total Protein (6.3-8.2) g/dL Albumin (3.5-5.0) g/dL Amylase (30-110) U/L Lipase (23-300) U/L Influenza Type A (PCR) Detected A (Not Detectd) Influenza Type B (PCR) Not Detected (Not Detectd) RSV (PCR) Not Detected (Not Detectd) SARS-CoV-2 (PCR) Not Detected (Not Detectd) Group A Strep (PCR) NOT DETECTED (Not Detectd) - Radiology Data Radiology results: report reviewed, image reviewed Disposition Clinical Impression: Influenza A, Acute viral sinusitis Disposition: HOME SELF-CARE Condition: Stable Instructions (If sedation given, give patient instructions): Influenza (DC) Additional Instructions: You may take Zofran every 8 hours for nausea. Continue with [id number] Tylenol for fever and bodyaches outpatient. Return to the ER for any new or worsening concerns. Prescriptions: Ondansetron Odt [Zofran Odt] 4 mg PO Q8HR PRN #10 tab PRN Reason: Nausea Is patient prescribed a controlled substance at d/c from ED?: No Referrals: Gerardo Ruth DO [Primary Care Provider] - 1-2 days Time of Disposition: 16:57
[2024-05-15] MEDS: SODIUM CHLORIDE 0.9% 1,000 ML IV STA (15:50)
[2024-05-15] MEDS: ONDANSETRON 4 MG/2 ML VIAL IVP STA (15:50)
[2024-05-15 15:57] LABS: Basophils % (A) 0 %; Eosinophils % (A) 1 %; HCT 48.6 % (34.0-46.0); HGB 16.8 gm/dL (11.4-16.0); Lymphocytes # (A) 0.5 k/uL (1.0-4.8); Lymphocytes % (A) 11 %; MCH 32.1 pg (25.0-35.0); MCHC 34.6 g/dL (31.0-37.0); MCV 92.7 fL (80.0-100.0); Mean Platelet Volume 8.8; Monocytes # (A) 0.2 k/uL (0-1.0); Monocytes % (A) 5 %; Neutrophils # (A) 3.8 k/uL (1.3-7.7); Neutrophils % (A) 81 %; Platelet Count 135 k/uL (150-450); RBC 5.25 m/uL (3.80-5.40); RDW 12.7 % (11.5-15.5); WBC 4.7 k/uL (3.8-10.6)
[2024-05-15] MEDS: ACETAMINOPHEN TAB 325 MG TAB PO STA (16:13)
--- NOTE | 2024-05-15 16:16 | XR ---
EXAMINATION TYPE: XR chest 2V DATE OF EXAM: 05/15/2024 4:07 PM COMPARISON: Chest radiographs from 09/07/2021 CLINICAL INDICATION: Female, 69 years old with history of cough; [facility] TECHNIQUE: XR chest 2V Frontal and lateral views of the chest. FINDINGS: Lungs/Pleura: There is no evidence of pleural effusion, focal consolidation, or pneumothorax. Pulmonary vascularity: Unremarkable. Heart/mediastinum: Cardiomediastinal silhouette is unremarkable. Musculoskeletal: No acute osseous pathology. IMPRESSION: No acute cardiopulmonary disease/process. [facility], , 05/15/2024 4:14 PM
[2024-05-15 16:17] LABS: ALT 45 U/L (4-34); African American GFR (CKD) 85 (>60 ml/min/1.73 sqM); Amylase 63 U/L (30-110); Anion Gap 13 mmol/L; Blood Urea Nitrogen 17 mg/dL (7-17); Calcium 8.8 mg/dL (8.4-10.2); Carbon Dioxide 27 mmol/L (22-30); Chloride 94 mmol/L (98-107); Glucose 103 mg/dL (74-99); Lipase 113 U/L (23-300); Non-African American GFR(CKD) 74 (>60 ml/min/1.73 sqM); Sodium 134 mmol/L (137-145); Total Bilirubin 0.9 mg/dL (0.2-1.3)
[2024-05-15 16:31] LABS: AST 73 U/L (14-36); Albumin 4.6 g/dL (3.5-5.0); Potassium 4.2 mmol/L (3.5-5.1); Total Protein 8.2 g/dL (6.3-8.2)
[2024-05-15 16:32] LABS: Alkaline Phosphatase 48 U/L (38-126)
[2024-05-15 16:33] LABS: Influenza A Detected (Not Detectd); Influenza B Not Detected (Not Detectd); RSV Not Detected (Not Detectd)
[2024-05-15 17:19] VITALS: BP 132/83; PULSE 79; RESP 18; TEMP 99.4
== END 2024-05-15 17:23 | disposition home or self-care (01) ==
LOC: EC 14:55
DX: J10.1 Influenza due to other identified influenza virus with other respiratory manifestations (principal); J01.90 Acute sinusitis, unspecified; B97.89 Other viral agents as the cause of diseases classified elsewhere; Z88.0 Allergy status to penicillin; Z88.6 Allergy status to analgesic agent
CPT/HCPCS: 36415; 87651; 80053; 82150; 83605; 83690; 85025; 87636; 71046; 99284; 96374; 96361; J2405

== ENCOUNTER → 2024-07-31 | Outpatient (CLI) | payer BC ==
[2024-07-31 15:48] LABS: Basophils # (A) 0.03 X 10*3/uL (0.00-0.10); Basophils % (A) 0.3 %; Eosinophils # (A) 0.06 X 10*3/uL (0.04-0.35); Eosinophils % (A) 0.7 %; HCT 43.4 % (37.2-46.3); HGB 13.9 g/dL (12.0-15.0); Lymphocytes # (A) 1.47 X 10*3/uL (0.90-5.00); Lymphocytes % (A) 15.9 %; MCH 31.2 pg (27.0-32.0); MCV 97.3 FL (80.0-97.0); Mean Platelet Volume 10.9 FL (9.5-12.2); Monocytes # (A) 0.56 X 10*3/uL (0.20-1.00); Monocytes % (A) 6.1 %; NRBC Per 100 WBC 0 X 10*3/uL (0.00-0.01); Neutrophils # (A) 7.07 X 10*3/uL (1.80-7.70); Neutrophils % (A) 76.7 %; Platelet Count 195 X 10*3/uL (140-440); RBC 4.46 X 10*6/uL (4.10-5.20); RDW 13.2 % (11.5-14.5); WBC 9.22 X 10*3/uL (4.50-10.00)
[2024-07-31 16:23] LABS: ALT 23 U/L (8-44); AST 22 U/L (13-35); Albumin 4.3 g/dL (3.8-4.9); Albumin/Globulin Ratio 1.59 Ratio (1.60-3.17); Alkaline Phosphatase 67 U/L (41-126); BUN/Creat Ratio 18.78 Ratio (12.00-20.00); Blood Urea Nitrogen 16.9 mg/dL (9.0-27.0); Calcium 9.7 mg/dL (8.7-10.3); Carbon Dioxide 26.2 mmol/L (21.6-31.8); Chloride 105 mmol/L (96-109); Chol/HDL Ratio 2.81 Ratio; Globulin 2.7 g/dL (1.6-3.3); Glucose 86 mg/dL (70-110); LDL Cholesterol,Calculated 93.2 mg/dL (0.0-131.0); Potassium 4.4 mmol/L (3.5-5.5); Rheumatoid Factor, Qnt <15 IU/mL (0-15); Sodium 142 mmol/L (135-145); T4, Free (Free Thyroxine) 1.16 ng/dL (0.80-1.80); Total Bilirubin 0.6 mg/dL (0.3-1.2)
[2024-07-31 16:26] LABS: Erythrocyte Sedimentation Rate 19 mm/Hr (0-30)
== END | disposition home or self-care (01) ==
LOC: LABWHC1 11:21
PROVIDERS: ATTEND Internal Medicine Critical Care Medicine
DX: M81.0 Age-related osteoporosis without current pathological fracture (principal); J45.50 Severe persistent asthma, uncomplicated
CPT/HCPCS: 36415; 80053; 80061; 82306; 82533; 82784; 83036; 84439; 84443; 85025; 85652; 86038; 86140; 86431

== ENCOUNTER 2024-08-30 14:14 | Emergency (ER) | payer BC ==
[2024-08-30 14:31] VITALS: TEMP 98
--- NOTE | 2024-08-30 16:26 | ED ---
Recheck HPI - General Chief Complaint: Recheck/Abnormal Lab/Rx Stated Complaint: High blood pressure, asthma Time Seen by Provider: 08/30/24 16:16 Source: patient, RN notes reviewed Mode of arrival: ambulatory Limitations: no limitations - History of Present Illness Initial Comments: This is a 69-year-old female with a history of osteoporosis, asthma, cataracts presenting to emergency department with referral from urgent care for concerns of hypertension. Patient states that she had cataract removal surgery earlier in the week where she was informed that her blood pressure is elevated. Initially, patient had injection of Prolia on Wednesday where again her blood pressure was elevated. Patient states she checked her blood pressure yesterday today was elevated in the 200s over 100s prompting her to go to the urgent care as her primary care provider was closed for the weekend. Urgent care reports that there were changes in the patient's EKG and the approach reports Emergency Department for further evaluation. Currently patient states that she is feeling well and is denying symptoms of chest pain, difficulty breathing, heart palpitations, dizziness, lightheadedness, headaches, visual disturbances, decrease in urinary output. Patient states that she does have severe asthma and this has been flared up recently. is requesting a steroid injection. - Related Data Home Medications Medication Instructions Recorded Confirmed Azithromycin [Zithromax] 250 mg PO MOWEFR 04/09/16 08/30/24 Montelukast Sodium [Singulair] 10 mg PO DAILY 04/09/16 08/30/24 Ascorbic Acid [Vitamin C] 1,000 mg PO DAILY 08/30/24 08/30/24 Calcium 1,000mg 1,000 mg PO DAILY 08/30/24 08/30/24 Cholecalciferol [Vitamin D3 (125 125 mcg PO DAILY 08/30/24 08/30/24 Mcg = 5000 Iu)] Fluticasone/Umeclidin/Vilanter 1 puff INHALATION RT-DAILY 08/30/24 08/30/24 [Trelegy Ellipta 200-62.5-25] Ketorolac 0.5% Ophth Soln [Acular 1 drop LEFT EYE BID 08/30/24 08/30/24 0.5%] prednisoLONE ACETATE 1% OPHTH 1 drop LEFT EYE BID 08/30/24 08/30/24 [Pred Forte 1%] Previous Rx's Medication Instructions Recorded lisinopriL [Zestril] 5 mg PO DAILY 14 Days #14 tab 08/30/24 Allergies Allergy/AdvReac Type Severity Reaction Status Date / Time aspirin Allergy Dyspnea Verified 08/30/24 16:59 Penicillins Allergy Rash/Hives Verified 08/30/24 16:59 Review of Systems ROS Statement: Those systems with pertinent positive or pertinent negative responses have been documented in the HPI. ROS Other: All systems not noted in ROS Statement are negative. Past Medical History Past Medical History: Asthma, Deep Vein Thrombosis (DVT) Additional Past Medical History / Comment(s): DVT 1995. VARICOSE VEINS. History of Any Multi-Drug Resistant Organisms: None Reported Additional Past Surgical History / Comment(s): VEIN STRIPPING. BRONCHOSCOPY. KIDNEY STONES. D&C. EXC BENIGN TUMOR LT OVARY. Past Anesthesia/Blood Transfusion Reactions: No Reported Reaction Past Psychological History: No Psychological Hx Reported Smoking Status: Never smoker Past Alcohol Use History: Rare Past Drug Use History: None Reported - Past Family History Father Family Medical History: Cancer Mother Family Medical History: Cancer Sister(s) Family Medical History: Cancer General Exam Limitations: no limitations General appearance: alert, in no apparent distress Eye exam: Present: normal appearance, PERRL, EOMI. Absent: scleral icterus, conjunctival injection, periorbital swelling Neck exam: Present: normal inspection. Absent: tenderness, meningismus, lymphadenopathy Respiratory exam: Present: normal lung sounds bilaterally. Absent: respiratory distress, wheezes, rales, rhonchi, stridor Cardiovascular Exam: Present: regular rate, normal rhythm, normal heart sounds. Absent: systolic murmur, diastolic murmur, rubs, gallop, clicks GI/Abdominal exam: Present: soft, normal bowel sounds. Absent: distended, tenderness, guarding, rebound, rigid Extremities exam: Present: normal inspection, full ROM, normal capillary refill. Absent: tenderness, pedal edema, joint swelling, calf tenderness Back exam: Present: normal inspection Skin exam: Present: warm, dry, intact, normal color. Absent: rash Course Vital Signs 08/30/24 08/30/24 08/30/24 14:29 16:48 17:58 Temperature 98.0 F Pulse Rate 90 78 81 Respiratory 16 18 20 Rate Blood Pressure 189/101 176/96 167/90 O2 Sat by Pulse 97 97 96 Oximetry 08/30/24 08/30/24 08/30/24 18:15 18:35 18:45 Temperature Pulse Rate 74 81 81 Respiratory 20 Rate Blood Pressure 155/68 O2 Sat by Pulse 97 Oximetry Medical Decision Making - Medical Decision Making Was pt. sent in by a medical professional or institution (, GRACIELA, BLOCK BREAKER OPERATOR, urgent care, hospital, or [facility]...) When possible be specific @ -Patient was advised by urgent care to report to emergency room for further evaluation of hypertension. Did you speak to anyone other than the patient for history (EMS, parent, family, police, friend...)? What history was obtained from this source @ -No Did you review nursing and triage notes (agree or disagree)? Why? @ -I reviewed and agree with nursing and triage notes Were old charts reviewed (outside hosp., previous admission, EMS record, old EKG, old radiological studies, urgent care reports/EKG's, [facility] records)? Report findings @ -No old charts were reviewed Differential Diagnosis (chest pain, altered mental status, abdominal pain women, abdominal pain men, vaginal bleeding, weakness, fever, dyspnea, syncope, headache, dizziness, GI bleed, back pain, seizure, CVA, palpatations, mental health, musculoskeletal)? @ -Hypertensive urgency, hypertensive emergency, asthma exacerbation, acute kidney injury, NSTEMI, this list is not all inclusive EKG interpreted by me (3pts min.). @ -Completed at 1456 sinus rhythm with a ventricular of 76, FL interval 196, QRS 97, QT 378, QTc 409. X-rays interpreted by me (1pt min.). @ -Chest x-ray no acute cardiopulmonary process or disease CT interpreted by me (1pt min.). @ -None done U/S interpreted by me (1pt. min.). @ -None done What testing was considered but not performed or refused? (CT, X-rays, U/S, labs)? Why? @ -None What meds were considered but not given or refused? Why? @ -None Did you discuss the management of the patient with other professionals (professionals i.e. GRACIELA Islas, BLOCK BREAKER OPERATOR, lab, RT, psych nurse, 7th grade social studies teacher, mast maker, teacher, special forces warrant officer, family caseworker)? Give summary @ -No Was smoking cessation discussed for >3mins.? @ -No Was critical care preformed (if so, how long)? @ -No Were there social determinants of health that impacted care today? How? (Home lessness, low income, unemployed, alcoholism, drug addiction, transportation, low edu. Level, literacy, decrease access to med. care, [facility], rehab)? @ -No Was there de-escalation of care discussed even if they declined (Discuss DNR or withdrawal of care, Hospice)? DNR status @ -No What co-morbidities impacted this encounter? (DM, HTN, Smoking, COPD, CAD, Cancer, CVA, ARF, Chemo, Hep., AIDS, mental health diagnosis, sleep apnea, morbid obesity)? @ -None Was patient admitted / discharged? Hospital course, mention meds given and route, prescriptions, significant lab abnormalities, going to OR and other pertinent info. @ -Discharged. 69-year-old female presenting to emergency room with referral from urgent care for concerns of hypertension. Patient's initial blood pressure was 189/101. On my evaluation the patient repeat blood pressure was 176/96. Patient is resting comfortably in examination room with no signs of distress. blood pressure is 155/68. Will hold hydralazine dose at this time. Pulmonary examination reveals bilateral expiratory wheezing most notable of the left lung kendrick. She is provided with dose of Solu-Medrol and DuoNeb breathing treatment. Patient is asymptomatic. EKG is in sinus rhythm. Laboratory testing grossly within normal limits including CBC, CMP, troponin. She is provided with outpatient prescription to initiate low-dose lisinopril 5 mg once a day and instructed follow-up with primary care provider. Return parameters discussed. Case discussed with Dr. Hays Undiagnosed new problem with uncertain prognosis? @ -No Drug Therapy requiring intensive monitoring for toxicity (Heparin, Nitro, Insulin, Cardizem)? @ -No Were any procedures done? @ -No Diagnosis/symptom? @ -Hypertension, asthma exacerbation Acute, or Chronic, or Acute on Chronic? @ -Acute Uncomplicated (without systemic symptoms) or Complicated (systemic symptoms)? @ -Uncomplicated Side effects of treatment? @ -No Exacerbation, Progression, or Severe Exacerbation? @ -No Poses a threat to life or bodily function? How? (Chest pain, USA, MD, pneumonia, PE, COPD, DKA, ARF, appy, cholecystitis, CVA, Diverticulitis, Homicidal, Suicidal, threat to staff... and all critical care pts) @ -No - Lab Data Result diagrams: 08/30/24 16:44 08/30/24 16:44 Lab Results 08/30/24 08/30/24 08/30/24 Range/Units 16:44 16:44 16:44 WBC 9.52 (4.50-10.00) 10*3/uL RBC 4.57 (4.10-5.20) 10*6/uL Hgb 14.8 (12.0-15.0) g/dL Hct 43.8 (37.2-46.3) % MCV 95.8 (80.0-97.0) fL MCH 32.4 H (27.0-32.0) pg MCHC 33.8 (32.0-37.0) g/dL Plt Count 203 (140-440) 10*3/uL MPV 9.9 (9.5-12.2) fL Immature Gran % (Auto) 0.2 % Neutrophils % 73.9 % Lymphocytes % 20.5 % Monocytes % 4.6 % Eosinophils % 0.4 % Basophils % 0.4 % Immature Gran # 0.02 (0.00-0.04) 10*3/uL Neutrophils # 7.03 (1.80-7.70) 10*3/uL Lymphocytes # 1.95 (0.90-5.00) 10*3/uL Monocytes # 0.44 (0.20-1.00) 10*3/uL Eosinophils # 0.04 (0.04-0.35) 10*3/uL Basophils # 0.04 (0.00-0.10) 10*3/uL PT 10.7 (10.0-12.5) sec INR 1.0 (<1.2) APTT 24.6 (22.0-30.0) sec Sodium 141 (137-145) mmol/L Potassium 4.2 (3.5-5.1) mmol/L Chloride 101 (98-107) mmol/L Carbon Dioxide 28 (22-30) mmol/L Anion Gap 12 mmol/L BUN 13 (7-17) mg/dL Creatinine 0.71 (0.52-1.04) mg/dL Est GFR (CKD-EPI)AfAm >90 (>60 ml/min/1.73 sqM) Est GFR (CKD-EPI)NonAf 88 (>60 ml/min/1.73 sqM) Glucose 87 (74-99) mg/dL Calcium 10.2 (8.4-10.2) mg/dL Magnesium 2.2 (1.6-2.3) mg/dL Total Bilirubin 0.7 (0.2-1.3) mg/dL AST 30 (14-36) U/L ALT 26 (4-34) U/L Alkaline Phosphatase 88 (38-126) U/L Troponin I (0.000-0.034) ng/mL Total Protein 8.5 H (6.3-8.2) g/dL Albumin 4.9 (3.5-5.0) g/dL 08/30/24 Range/Units 16:44 WBC (4.50-10.00) 10*3/uL RBC (4.10-5.20) 10*6/uL Hgb (12.0-15.0) g/dL Hct (37.2-46.3) % MCV (80.0-97.0) fL MCH (27.0-32.0) pg MCHC (32.0-37.0) g/dL Plt Count (140-440) 10*3/uL MPV (9.5-12.2) fL Immature Gran % (Auto) % Neutrophils % % Lymphocytes % % Monocytes % % Eosinophils % % Basophils % % Immature Gran # (0.00-0.04) 10*3/uL Neutrophils # (1.80-7.70) 10*3/uL Lymphocytes # (0.90-5.00) 10*3/uL Monocytes # (0.20-1.00) 10*3/uL Eosinophils # (0.04-0.35) 10*3/uL Basophils # (0.00-0.10) 10*3/uL PT (10.0-12.5) sec INR (<1.2) APTT (22.0-30.0) sec Sodium (137-145) mmol/L Potassium (3.5-5.1) mmol/L Chloride (98-107) mmol/L Carbon Dioxide (22-30) mmol/L Anion Gap mmol/L BUN (7-17) mg/dL Creatinine (0.52-1.04) mg/dL Est GFR (CKD-EPI)AfAm (>60 ml/min/1.73 sqM) Est GFR (CKD-EPI)NonAf (>60 ml/min/1.73 sqM) Glucose (74-99) mg/dL Calcium (8.4-10.2) mg/dL Magnesium (1.6-2.3) mg/dL Total Bilirubin (0.2-1.3) mg/dL AST (14-36) U/L ALT (4-34) U/L Alkaline Phosphatase (38-126) U/L Troponin I <0.012 (0.000-0.034) ng/mL Total Protein (6.3-8.2) g/dL Albumin (3.5-5.0) g/dL Disposition Clinical Impression: Hypertension, Asthma exacerbation Disposition: HOME SELF-CARE Condition: Stable Instructions (If sedation given, give patient instructions): Lisinopril (By mouth), Hypertension (ED) Additional Instructions: Please return to the Emergency Department if symptoms worsen or any other concerns. Begin to take lisinopril once a day as prescribed and follow-up with your primary care provider within the next 1 to 3 days. Prescriptions: lisinopriL [Zestril] 5 mg PO DAILY 14 Days #14 tab Is patient prescribed a controlled substance at d/c from ED?: No Referrals: Gerardo Ruth DO [Primary Care Provider] - 1-2 days Time of Disposition: 18:33
[2024-08-30] MEDS: methylPREDNISolone SOD SUCCI 125 MG/2 ML VIAL IV STA (16:46)
[2024-08-30 16:50] LABS: Basophils # (A) 0.04 10*3/uL (0.00-0.10); Basophils % (A) 0.4 %; Eosinophils # (A) 0.04 10*3/uL (0.04-0.35); Eosinophils % (A) 0.4 %; HCT 43.8 % (37.2-46.3); HGB 14.8 g/dL (12.0-15.0); Lymphocytes # (A) 1.95 10*3/uL (0.90-5.00); Lymphocytes % (A) 20.5 %; MCH 32.4 pg (27.0-32.0); MCHC 33.8 g/dL (32.0-37.0); MCV 95.8 fL (80.0-97.0); Mean Platelet Volume 9.9 fL (9.5-12.2); Monocytes # (A) 0.44 10*3/uL (0.20-1.00); Monocytes % (A) 4.6 %; Neutrophils # (A) 7.03 10*3/uL (1.80-7.70); Neutrophils % (A) 73.9 %; Platelet Count 203 10*3/uL (140-440); RBC 4.57 10*6/uL (4.10-5.20); RDW 12.7 % (11.5-14.5); WBC 9.52 10*3/uL (4.50-10.00)
[2024-08-30 17:04] LABS: ALT 26 U/L (4-34); AST 30 U/L (14-36); African American GFR (CKD) >90 (>60 ml/min/1.73 sqM); Albumin 4.9 g/dL (3.5-5.0); Alkaline Phosphatase 88 U/L (38-126); Anion Gap 12 mmol/L; Blood Urea Nitrogen 13 mg/dL (7-17); Calcium 10.2 mg/dL (8.4-10.2); Carbon Dioxide 28 mmol/L (22-30); Chloride 101 mmol/L (98-107); Glucose 87 mg/dL (74-99); Magnesium 2.2 mg/dL (1.6-2.3); Non-African American GFR(CKD) 88 (>60 ml/min/1.73 sqM); Potassium 4.2 mmol/L (3.5-5.1); Sodium 141 mmol/L (137-145); Total Bilirubin 0.7 mg/dL (0.2-1.3); Total Protein 8.5 g/dL (6.3-8.2)
[2024-08-30 17:05] LABS: Partial Thromboplastin Time 24.6 sec (22.0-30.0); Prothrombin Time 10.7 sec (10.0-12.5)
--- NOTE | 2024-08-30 17:19 | XR ---
EXAMINATION TYPE: XR chest 2V DATE OF EXAM: 08/30/2024 5:16 PM COMPARISON: 05/15/2024 CLINICAL INDICATION: Female, 69 years old with history of HTN, wheezing: Shortness of breath TECHNIQUE: XR chest 2V views of the chest are obtained. FINDINGS: Scattered senescent parenchymal changes noted. Hyperinflation compatible with COPD. No evidence for infiltrate. No evidence for atelectasis. Heart size is stable. Mediastinal structures are stable and grossly unremarkable. No evidence for hilar prominence. Degenerative changes dorsal spine. IMPRESSION: 1. No evidence for acute pulmonary disease. [facility], , 08/30/2024 5:17 PM
[2024-08-30 18:04] VITALS: RESP 20
[2024-08-30] MEDS: hydrALAZINE HCL 20 MG/ML 1 ML VIAL IVP STA (18:14)
[2024-08-30 18:16] VITALS: BP 155/68
[2024-08-30] MEDS: IPRATROPIUM-ALBUTEROL 3 ML NEB INHALATION STA (18:35)
[2024-08-30 18:39] VITALS: PULSE 81
== END 2024-08-30 19:00 | disposition home or self-care (01) ==
LOC: EC 14:14
DX: I10 Essential (primary) hypertension (principal); J45.901 Unspecified asthma with (acute) exacerbation; Z88.0 Allergy status to penicillin; Z88.6 Allergy status to analgesic agent
CPT/HCPCS: 36415; 94640; 93005; 80053; 83735; 84484; 85025; 85610; 85730; 71046; 99284; 96374; J2919